=== PATIENT | female | born 1975 | race Caucasian/White ===

== ENCOUNTER 2019-10-04 02:27 | Emergency (ER) | payer SELFPAY | END 2019-10-04 02:50 | disposition left against medical advice (07) | LOC: ER 02:33 | DX: R68.89 Other general symptoms and signs (principal); Z53.21 Procedure and treatment not carried out due to patient leaving prior to being seen by health care provider ==

== ENCOUNTER 2020-12-19 19:25 | Inpatient (IN) | payer SELFPAY ==
[~2020-12-19] VITALS: Ht 160 cm; Wt 70.8 kg
[2020-12-19] MEDS ORDERED: ASPIRIN 81MG TABLET PO ONE (23:15)
[2020-12-19] MEDS ORDERED: NITROGLYCERIN 0.4MG TABLET SL SL PRN (23:15)
[2020-12-19 23:31] LABS: HEMATOCRIT. 39.6 % (36.0-48.0); HEMOGLOBIN. 13.6 g/dL (12.0-16.0); MEAN CORPUSCULAR HEMOGLOBIN 32.4 pg (28.0-32.0); MEAN CORPUSCULAR VOLUME 94.4 fL (81.0-99.0); MEAN PLATELET VOLUME 8.3 fl (7.4-10.4); PLATELET 289 x1000/uL (130-400); RED CELL DISTRIBUTION WIDTH 12.8 % (11.6-14.6)
[2020-12-19 23:35] LABS: CHLORIDE 106 mEq/L (98-107)
[2020-12-19 23:42] LABS: D-DIMER 3.78 mg/L FEU (<0.50); PARTIAL THROMBOPLASTIN TIME 29.9 sec (23.4-31.0); PROTHROMBIN TIME 10.3 sec (9.6-11.0)
[2020-12-20 00:07] LABS: HCG SCREEN NEGATIVE
[2020-12-20] MEDS ORDERED: CEFTRIAXONE 1 G PREMIX 50 ML IV ONE (00:30)
[2020-12-20] MEDS ORDERED: AZITHROMYCIN 500MG/250ML 250 ML IV ONE (00:30)
[2020-12-20] MEDS ORDERED: SODIUM CHLORIDE 0.9% 1000ML BAG (SEPSIS BOLUS) IV ONE (00:30)
[2020-12-20] MEDS ORDERED: DEXAMETHASONE 10 MG/ML VIAL IV ONE (01:00)
[2020-12-20] MEDS ORDERED: ONDANSETRON HCL 4MG/2ML INJ IV STA (01:00)
[2020-12-20] MEDS ORDERED: ENOXAPARIN 80MG/0.8ML SYR SUBCUT ONE (01:00)
[2020-12-20] MEDS ORDERED: MORPHINE SULFATE 4 MG/ML CPJ (NOT FOR IM USE) IV STA (01:00)
[2020-12-20 02:14] LABS: CLARITY URINE CLEAR (CLEAR); COLOR URINE YELLOW (YELLOW); KETONES URINE 1+ (NEGATIVE); LEUKOCYTE ESTERASE URINE NEGATIVE (NEGATIVE); NITRITE URINE NEGATIVE (NEGATIVE); OCCULT BLOOD URINE NEGATIVE (NEGATIVE); PH URINE 8.5 (4.5-8.0); PROTEIN URINE NEGATIVE (NEGATIVE); SPECIFIC GRAVITY URINE 1.034 (1.005-1.030); UROBILINOGEN URINE 0.2 E.U./dL (0.2-1.0)
[2020-12-20 04:05] LABS: PLATELET ESTIMATE NORMAL
[2020-12-20] MEDS ORDERED: IOHEXOL-350 100 ML BOTTLE ONE (05:33)
[2020-12-20] MEDS ORDERED: CLONIDINE 0.1MG TABLET PO PRN (08:15)
[2020-12-20] MEDS ORDERED: DOCUSATE SODIUM 100MG CAPSULE PO PRN (08:15)
[2020-12-20] MEDS ORDERED: LORAZEPAM 0.5MG TABLET PO PRN ×2 (08:15→12:15)
[2020-12-20] MEDS ORDERED: ACETAMINOPHEN 325MG TABLET PO PRN ×2 (08:15)
[2020-12-20] MEDS ORDERED: NALOXONE HCL 0.4MG/ML VIAL IV PRN (09:30)
[2020-12-20 10:50] VITALS: BP 126/79
[2020-12-20 12:00] VITALS: BP 126/79
[2020-12-20] MEDS: AZITHROMYCIN 500 MG TABLET PO SCH (14:49)
[2020-12-20] MEDS: MULTIVITAMINS,THER W-MINERALS TABLET PO SCH (14:49)
[2020-12-20] MEDS: METRONIDAZOLE 500MG TABLET PO SCH ×2 (14:50→21:26)
[2020-12-20] MEDS: CHLORDIAZEPOXIDE 25MG CAPSULE PO SCH ×2 (14:50→21:26)
[2020-12-20] MEDS: THIAMINE HCL 100MG TABLET PO SCH (14:50)
[2020-12-20] MEDS: FOLIC ACID 1MG TABLET PO SCH (14:50)
[2020-12-20 15:02] LABS: *BARBITURATES SCREEN URINE NEGATIVE (NEGATIVE); *BENZODIAZEPINES SCREEN URINE NEGATIVE (NEGATIVE); METHADONE URINE SCREEN NEGATIVE (NEGATIVE); PHENCYCLIDINE URINE SCREEN NEGATIVE (NEGATIVE)
[2020-12-20 15:04] LABS: *COCAINE SCREEN URINE NEGATIVE (NEGATIVE)
[2020-12-20 15:13] LABS: *AMPHETAMINES SCREEN URINE PRESUMTIVE POSITIVE (NEGATIVE); CANNABINOID URINE SCREEN PRESUMTIVE POSITIVE (NEGATIVE); OPIATES URINE SCREEN PRESUMTIVE POSITIVE (NEGATIVE)
[2020-12-20 16:00] VITALS: BP 104/66
[2020-12-20 16:23] LABS: LDL CHOLESTEROL 75 mg/dL (5-100)
[2020-12-20 16:26] LABS: HDL CHOLESTEROL 69 mg/dL (40-59)
[2020-12-20 20:00] VITALS: BP 118/68
[2020-12-20] MEDS: CEFTRIAXONE 1,000 MG in DEXTROSE 5% WATER 50 ML IV SCH (21:26)
[2020-12-21] VITALS: BP 120/70
[2020-12-21] MEDS: HYDROCODONE/ACETAMINOPHEN 5/325MG TABLET PO PRN ×3 (03:16→18:01)
[2020-12-21] MEDS: IPRATROPIUM/ALBUTEROL 0.5-3(2.5)MG/3ML NEB HHN PRN ×3 (03:58→12:35)
[2020-12-21 04:00] VITALS: BP 121/73
[2020-12-21 06:29] LABS: BASOPHILS % 0.8 % (0.0-2.0); EOSINOPHILS % 3.3 % (0.0-5.0); HEMATOCRIT. 39.1 % (36.0-48.0); LYMPHOCYTES % 15.7 % (20.0-50.0); MEAN CORPUSCULAR HEMOGLOBIN 31.7 pg (28.0-32.0); MEAN CORPUSCULAR VOLUME 94.8 fL (81.0-99.0); NEUTROPHILS % 67.2 % (40.0-76.0); PLATELET 294 x1000/uL (130-400); RED BLOOD CELL COUNT 4.12 mill/uL (4.2-5.4); RED CELL DISTRIBUTION WIDTH 12.6 % (11.6-14.6)
[2020-12-21 06:30] LABS: CHLORIDE 108 mEq/L (98-107)
[2020-12-21] MEDS: CHLORDIAZEPOXIDE 25MG CAPSULE PO SCH ×3 (06:31→21:00)
[2020-12-21] MEDS: METRONIDAZOLE 500MG TABLET PO SCH ×3 (06:31→21:00)
[2020-12-21 08:00] VITALS: BP 124/83
[2020-12-21] MEDS: FOLIC ACID 1MG TABLET PO SCH (08:40)
[2020-12-21] MEDS: MULTIVITAMINS,THER W-MINERALS TABLET PO SCH (08:40)
[2020-12-21] MEDS: THIAMINE HCL 100MG TABLET PO SCH (08:40)
[2020-12-21] MEDS: AZITHROMYCIN 500 MG TABLET PO SCH (08:40)
[2020-12-21 12:00] VITALS: BP 109/67
[2020-12-21 16:00] VITALS: BP 107/69
[2020-12-21] MEDS: ONDANSETRON HCL 4MG/2ML INJ IV PRN (18:03)
[2020-12-21 20:00] VITALS: BP 117/77
[2020-12-21] MEDS: CEFTRIAXONE 1,000 MG in DEXTROSE 5% WATER 50 ML IV SCH (20:58)
[2020-12-22] VITALS: BP 136/71
[2020-12-22] MEDS: HYDROCODONE/ACETAMINOPHEN 5/325MG TABLET PO PRN (00:42)
[2020-12-22] MEDS: ONDANSETRON HCL 4MG/2ML INJ IV PRN (00:46)
[2020-12-22] MEDS: IPRATROPIUM/ALBUTEROL 0.5-3(2.5)MG/3ML NEB HHN PRN (01:12)
[2020-12-22 04:00] VITALS: BP 126/75
[2020-12-22] MEDS: CHLORDIAZEPOXIDE 25MG CAPSULE PO SCH (05:09)
[2020-12-22] MEDS: METRONIDAZOLE 500MG TABLET PO SCH (05:09)
[2020-12-22 06:33] LABS: BASOPHILS % 0.7 % (0.0-2.0); EOSINOPHILS % 5.6 % (0.0-5.0); HEMATOCRIT. 42.2 % (36.0-48.0); HEMOGLOBIN. 14.4 g/dL (12.0-16.0); LYMPHOCYTES % 17.1 % (20.0-50.0); MEAN CORPUSCULAR HEMOGLOBIN 32.7 pg (28.0-32.0); MEAN CORPUSCULAR VOLUME 95.6 fL (81.0-99.0); MEAN PLATELET VOLUME 9.1 fl (7.4-10.4); MONOCYTES % 13.2 % (2.0-8.0); NEUTROPHILS % 63.4 % (40.0-76.0); PLATELET 308 x1000/uL (130-400); RED BLOOD CELL COUNT 4.41 mill/uL (4.2-5.4)
[2020-12-22 06:55] LABS: CHLORIDE 106 mEq/L (98-107)
[2020-12-22 07:10] LABS: T4 FREE 1.43 ng/dL (0.76-1.46)
[2020-12-22 08:00] VITALS: BP 115/77
[2020-12-22] MEDS: MULTIVITAMINS,THER W-MINERALS TABLET PO SCH (08:53)
[2020-12-22] MEDS: THIAMINE HCL 100MG TABLET PO SCH (08:53)
[2020-12-22] MEDS: FOLIC ACID 1MG TABLET PO SCH (08:53)
[2020-12-22] MEDS: AZITHROMYCIN 500 MG TABLET PO SCH (08:53)
[2020-12-22] MEDS ORDERED: AMOX-424 MT (12:40)
[2020-12-22] MEDS ORDERED: THIA100T72 MT (12:40)
[2020-12-22] MEDS ORDERED: AZIT500T8 MT (12:40)
[2020-12-22] MEDS ORDERED: ALBU18HF2 IH (12:40)
[2020-12-22] MEDS ORDERED: LEVO50TA8 MT (12:40)
[2020-12-22] MEDS ORDERED: L25 MT (12:40)
[2020-12-22] MEDS ORDERED: FOLI-43 MT (12:40)
[2020-12-22] MEDS ORDERED: LEVOTHYROXINE SODIUM 50MCG TABLET PO SCH (12:45)
[2020-12-22 13:02] VITALS: BP 115/77
== END 2020-12-22 13:20 | disposition home or self-care (01) | DRG 720 ==
LOC: ER 19:25 → MICUSO 12-20 01:01 → 7WST 12-20 11:30 → 7EST 12-20 17:56
PROVIDERS: ADMIT Internal Medicine; ATTEND Internal Medicine
DX: A41.9 Sepsis, unspecified organism (principal); E43 Unspecified severe protein-calorie malnutrition; J68.0 Bronchitis and pneumonitis due to chemicals, gases, fumes and vapors; T43.621A Poisoning by amphetamines, accidental (unintentional), initial encounter; F10.20 Alcohol dependence, uncomplicated; Z20.822 Contact with and (suspected) exposure to COVID-19; F15.10 Other stimulant abuse, uncomplicated; E03.9 Hypothyroidism, unspecified; Y90.9 Presence of alcohol in blood, level not specified; Z87.891 Personal history of nicotine dependence; Z71.41 Alcohol abuse counseling and surveillance of alcoholic; Z71.51 Drug abuse counseling and surveillance of drug abuser; Y92.89 Other specified places as the place of occurrence of the external cause; Z68.27 Body mass index [BMI] 27.0-27.9, adult
CPT/HCPCS: 36415; 71045; 71275; 80048; 80053; 80061; 80305; 81003; 83036; 83605; 83880; 84145; 84439; 84443; 84481; 84484; 84703; 85025; 85379; 93005; 93306; 94640; 99285; J0456; J0696; J1100; J1650; J2270; J2405; J7030; J7060; Q9967; U0003; U0005